=== PATIENT | female | born 1955 | race African-American/Black ===

== ENCOUNTER 2022-07-17 15:33 | Inpatient (IN) | payer MEDICARE, MEDICAID ==
[~2022-07-17] VITALS: Ht 167.6 cm; Wt 54.6 kg
[~2022-07-17 15:33] MED LIST: ALPR0.5T PO; AMIT25TA9 PO; ARAV10 PO; ATEN50TA PO; CELL5 PO; DULO30CA2; FOLI-43 PO; GABA-532; HYDR200T35 PO; HYDR25TA PO; LEVO50TA8 PO; MECL-159 PO; MELO15TA13 PO; METF-414; PRED10TA; QUET25TA PO; SIMV-341; SULF500T PO; TRAM50TA PO
[2022-07-17] MEDS ORDERED: SODIUM CHLORIDE 0.9% 1,000 ML IV ONE (16:45)
[2022-07-17] MEDS ORDERED: ASPIRIN 81MG TABLET PO ONE (16:45)
[2022-07-17 16:59] LABS: BASOPHILS % 0.9 % (0.0-2.0); EOSINOPHILS % 5.4 % (0.0-5.0); HEMATOCRIT. 32.6 % (36.0-48.0); HEMOGLOBIN. 10.7 g/dL (12.0-16.0); LYMPHOCYTES % 28.3 % (20.0-50.0); MEAN CORPUSCULAR HEMOGLOBIN 28.7 pg (28.0-32.0); MEAN CORPUSCULAR VOLUME 87.2 fL (81.0-99.0); MEAN PLATELET VOLUME 8.6 fl (7.4-10.4); MONOCYTES % 4.8 % (2.0-8.0); NEUTROPHILS % 60.6 % (40.0-76.0); PLATELET 190 x1000/uL (130-400); RED BLOOD CELL COUNT 3.73 mill/uL (4.2-5.4); RED CELL DISTRIBUTION WIDTH 14.5 % (11.6-14.6)
[2022-07-17 17:11] LABS: CHLORIDE 106 mEq/L (98-107)
[2022-07-17] MEDS ORDERED: NOREPINEPHRINE 8MG/250ML PMX 250 ML IV ONE (18:00)
[2022-07-17] MEDS ORDERED: IOHEXOL-350 100 ML BOTTLE ONE (18:09)
[2022-07-17] MEDS ORDERED: VANCOMYCIN 1G PREMIX 200 ML IV SCH (18:30)
[2022-07-17] MEDS ORDERED: CEFTRIAXONE 1 G PREMIX 50 ML IV ONE (18:30)
[2022-07-17 20:02] LABS: CLARITY URINE CLEAR (CLEAR); COLOR URINE YELLOW (YELLOW); KETONES URINE NEGATIVE (NEGATIVE); LEUKOCYTE ESTERASE URINE NEGATIVE (NEGATIVE); NITRITE URINE NEGATIVE (NEGATIVE); OCCULT BLOOD URINE NEGATIVE (NEGATIVE); PH URINE 6.5 (4.5-8.0); PROTEIN URINE NEGATIVE (NEGATIVE); UROBILINOGEN URINE 0.2 E.U./dL (0.2-1.0)
[2022-07-17] MEDS ORDERED: MORPHINE SULFATE 4 MG/ML CPJ (NOT FOR IM USE) IV ONE (21:15)
[2022-07-17] MEDS ORDERED: ONDANSETRON HCL 4MG/2ML INJ IV ONE (21:15)
[2022-07-17] MEDS ORDERED: PHENYLEPHRINE 100 MG in DEXT 5% WATER 240 ML IV PRN (21:45)
[2022-07-17] MEDS: PHENYLEPHRINE 100 MG in DEXT 5% WATER 240 ML IV PRN (22:31)
[2022-07-18] VITALS (17 sets, daily range): BP systolic 87–138; BP diastolic 46–73
[2022-07-18] MEDS ORDERED: IPRATROPIUM/ALBUTEROL 0.5-3(2.5)MG/3ML NEB HHN PRN (03:00)
[2022-07-18] MEDS ORDERED: NA PHOS,M-B/NA PHOS,DI-BA ENEMA 118ML PR PRN (03:00)
[2022-07-18] MEDS ORDERED: DIPHENHYDRAMINE 50MG/ML VIAL IV PRN (03:00)
[2022-07-18] MEDS ORDERED: ACETAMINOPHEN 325MG TABLET PO PRN ×2 (03:00)
[2022-07-18] MEDS ORDERED: CLONIDINE 0.1MG TABLET PO PRN (03:00)
[2022-07-18] MEDS ORDERED: MAGNESIUM/ALUMINUM HYDROXIDE/SIMETHICONE 30ML UDC PO PRN (03:00)
[2022-07-18] MEDS ORDERED: DOCUSATE SODIUM 100MG CAPSULE PO PRN (03:00)
[2022-07-18] MEDS ORDERED: GUAIFENESIN 200MG/10ML SUGAR FREE UDC PO PRN (03:00)
[2022-07-18] MEDS: QUETIAPINE FUMARATE 25MG TABLET PO SCH ×2 (03:15→11:24)
[2022-07-18] MEDS: ATORVASTATIN CALCIUM 20MG TABLET PO SCH ×2 (03:15→22:48)
[2022-07-18] MEDS ORDERED: DEXTROSE 50% WATER 50ML SYRINGE IV PRN (03:15)
[2022-07-18] MEDS: PREDNISONE 5MG TABLET PO SCH (03:15)
[2022-07-18] MEDS: SODIUM CHLORIDE 0.9% 1,000 ML IV SCH ×2 (03:15→17:09)
[2022-07-18 05:23] LABS: BASOPHILS % 2.7 % (0.0-2.0); HEMATOCRIT. 30.8 % (36.0-48.0); HEMOGLOBIN. 10.3 g/dL (12.0-16.0); LYMPHOCYTES % 25.5 % (20.0-50.0); MEAN CORPUSCULAR HEMOGLOBIN 28.8 pg (28.0-32.0); MEAN CORPUSCULAR VOLUME 86.5 fL (81.0-99.0); MEAN PLATELET VOLUME 8.1 fl (7.4-10.4); MONOCYTES % 6.4 % (2.0-8.0); NEUTROPHILS % 54.4 % (40.0-76.0); PLATELET 215 x1000/uL (130-400); RED BLOOD CELL COUNT 3.57 mill/uL (4.2-5.4); RED CELL DISTRIBUTION WIDTH 14.8 % (11.6-14.6)
[2022-07-18 05:52] LABS: PHOSPHORUS 3.9 mg/dL (2.5-4.9); T4 FREE 1.27 ng/dL (0.76-1.46)
[2022-07-18] MEDS ORDERED: VANCOMYCIN 1G PREMIX 200 ML IV SCH (06:00)
[2022-07-18] MEDS: INSULIN LISPRO 100 UNITS/ML SUBCUT SCH ×4 (06:28→21:00)
[2022-07-18] MEDS: BLOOD SUGAR DIAGNOSTIC STRIP TEST SCH ×4 (06:28→21:00)
[2022-07-18] MEDS: PANTOPRAZOLE 40MG DR TABLET PO SCH (06:49)
[2022-07-18] MEDS: LEVOTHYROXINE SODIUM 50MCG TABLET PO SCH (06:49)
[2022-07-18] MEDS: ENOXAPARIN 40MG/0.4ML SYR SUBCUT SCH (09:00)
[2022-07-18] MEDS: MIDODRINE HCL 5MG TABLET PO SCH ×3 (11:24→17:00)
[2022-07-18] MEDS: ASPIRIN 81MG TABLET PO SCH (11:24)
[2022-07-18] MEDS: DULOXETINE HCL 30MG DR CAPSULE PO SCH (11:24)
[2022-07-18] MEDS: VANCOMYCIN 750MG PREMIX 150 ML IV SCH (12:00)
[2022-07-18] MEDS: HYDROCODONE/ACETAMINOPHEN 10/325MG TABLET PO PRN (13:54)
[2022-07-18 14:04] LABS: FOLIC ACID (FOLATE) SERUM > 20.00 ng/mL (>5.38)
[2022-07-18] MEDS ORDERED: NALOXONE HCL 0.4MG/ML VIAL IV PRN (14:30)
[2022-07-18] MEDS ORDERED: AMIODARONE HCL 900 MG in DEXT 5% WATER 482 ML IV PRN (16:00)
[2022-07-18] MEDS ORDERED: AMIODARONE HCL 150 MG in DEXT 5% WATER 100 ML IV NR (17:00)
[2022-07-18] MEDS ORDERED: CEFTRIAXONE 1 G PREMIX 50 ML IV SCH (18:00)
[2022-07-18] MEDS: CEFTRIAXONE 1,000 MG in DEXTROSE 5% WATER 50 ML IV SCH (18:05)
[2022-07-18] MEDS: ONDANSETRON HCL 4MG/2ML INJ IV PRN (23:07)
[2022-07-19] VITALS (47 sets, daily range): BP systolic 83–158; BP diastolic 40–103
[2022-07-19] MEDS: PHENYLEPHRINE 100 MG in DEXT 5% WATER 240 ML IV PRN (00:39)
[2022-07-19] MEDS: VANCOMYCIN 750MG PREMIX 150 ML IV SCH ×2 (06:30→23:35)
[2022-07-19 07:08] LABS: HEMATOCRIT. 35.4 % (36.0-48.0); HEMOGLOBIN. 11.3 g/dL (12.0-16.0); MEAN CORPUSCULAR HEMOGLOBIN 28.6 pg (28.0-32.0); MEAN CORPUSCULAR VOLUME 89.8 fL (81.0-99.0); PLATELET 171 x1000/uL (130-400); RED BLOOD CELL COUNT 3.94 mill/uL (4.2-5.4); RED CELL DISTRIBUTION WIDTH 14.9 % (11.6-14.6)
[2022-07-19 07:24] LABS: CHLORIDE 104 mEq/L (98-107)
[2022-07-19 07:32] LABS: PHOSPHORUS 2.9 mg/dL (2.5-4.9)
[2022-07-19] MEDS: BLOOD SUGAR DIAGNOSTIC STRIP TEST SCH ×4 (07:50→21:28)
[2022-07-19] MEDS: INSULIN LISPRO 100 UNITS/ML SUBCUT SCH ×4 (08:20→21:00)
[2022-07-19] MEDS: AMIODARONE HCL 200 MG TABLET PO SCH ×2 (09:00→21:28)
[2022-07-19] MEDS ORDERED: MAGNESIUM 2 G PREMIX 50 ML IV NR (09:00)
[2022-07-19] MEDS: MAGNESIUM OXIDE 400MG TABLET PO SCH (09:00)
[2022-07-19] MEDS: QUETIAPINE FUMARATE 25MG TABLET PO SCH (09:30)
[2022-07-19] MEDS: PANTOPRAZOLE 40MG DR TABLET PO SCH (09:31)
[2022-07-19] MEDS: DULOXETINE HCL 30MG DR CAPSULE PO SCH (09:31)
[2022-07-19] MEDS: ASPIRIN 81MG TABLET PO SCH (09:31)
[2022-07-19] MEDS: ENOXAPARIN 40MG/0.4ML SYR SUBCUT SCH (09:31)
[2022-07-19] MEDS: PREDNISONE 5MG TABLET PO SCH (09:31)
[2022-07-19] MEDS: MIDODRINE HCL 5MG TABLET PO SCH ×3 (09:31→17:26)
[2022-07-19 10:02] LABS: PLATELET ESTIMATE NORMAL
[2022-07-19] MEDS ORDERED: DIPHENOXYLATE/ATROPINE 2.5/0.025MG TABLET PO PRN (13:15)
[2022-07-19] MEDS: ONDANSETRON HCL 4MG/2ML INJ IV PRN (13:27)
[2022-07-19] MEDS: HYDROCODONE/ACETAMINOPHEN 5/325MG TABLET PO PRN (13:28)
[2022-07-19] MEDS: METRONIDAZOLE 500 MG PREMIX 100 ML IV SCH ×2 (15:34→21:32)
[2022-07-19] MEDS: CEFTRIAXONE 1,000 MG in DEXTROSE 5% WATER 50 ML IV SCH (17:26)
[2022-07-19] MEDS: PANTOPRAZOLE SODIUM 40 MG/VIAL IV SCH (17:26)
[2022-07-19] MEDS: ATORVASTATIN CALCIUM 20MG TABLET PO SCH (21:28)
[2022-07-20] VITALS (39 sets, daily range): BP systolic 43–173; BP diastolic 18–113
[2022-07-20] MEDS: HYDROCODONE/ACETAMINOPHEN 5/325MG TABLET PO PRN ×2 (03:12→10:17)
[2022-07-20] MEDS: METRONIDAZOLE 500 MG PREMIX 100 ML IV SCH ×3 (05:50→21:22)
[2022-07-20 07:33] LABS: CHLORIDE 107 mEq/L (98-107)
[2022-07-20 07:44] LABS: BASOPHILS % 0.9 % (0.0-2.0); EOSINOPHILS % 8.5 % (0.0-5.0); HEMATOCRIT. 28.9 % (36.0-48.0); HEMOGLOBIN. 9.5 g/dL (12.0-16.0); MEAN CORPUSCULAR HEMOGLOBIN 28.7 pg (28.0-32.0); MEAN CORPUSCULAR VOLUME 87.5 fL (81.0-99.0); MEAN PLATELET VOLUME 8.7 fl (7.4-10.4); MONOCYTES % 7.7 % (2.0-8.0); NEUTROPHILS % 45.9 % (40.0-76.0); PLATELET 175 x1000/uL (130-400); RED BLOOD CELL COUNT 3.31 mill/uL (4.2-5.4); RED CELL DISTRIBUTION WIDTH 14.5 % (11.6-14.6)
[2022-07-20] MEDS: INSULIN LISPRO 100 UNITS/ML SUBCUT SCH ×4 (08:20→21:00)
[2022-07-20] MEDS: BLOOD SUGAR DIAGNOSTIC STRIP TEST SCH ×4 (08:39→21:23)
[2022-07-20] MEDS: MAGNESIUM OXIDE 400MG TABLET PO SCH (08:40)
[2022-07-20] MEDS: PANTOPRAZOLE SODIUM 40 MG/VIAL IV SCH ×2 (08:40→17:31)
[2022-07-20] MEDS: QUETIAPINE FUMARATE 25MG TABLET PO SCH (08:40)
[2022-07-20] MEDS: ASPIRIN 81MG TABLET PO SCH (08:40)
[2022-07-20] MEDS: AMIODARONE HCL 200 MG TABLET PO SCH (08:40)
[2022-07-20] MEDS: DULOXETINE HCL 30MG DR CAPSULE PO SCH (08:41)
[2022-07-20] MEDS: ENOXAPARIN 40MG/0.4ML SYR SUBCUT SCH (08:41)
[2022-07-20] MEDS: MIDODRINE HCL 5MG TABLET PO SCH ×3 (08:41→17:31)
[2022-07-20] MEDS: PREDNISONE 5MG TABLET PO SCH (08:41)
[2022-07-20] MEDS: LEVOTHYROXINE SODIUM 50MCG TABLET PO SCH (08:41)
[2022-07-20] MEDS: ONDANSETRON HCL 4MG/2ML INJ IV PRN (15:58)
[2022-07-20] MEDS ORDERED: METOCLOPRAMIDE HCL 10MG/2ML VIAL IV PRN (16:00)
[2022-07-20 16:43] LABS: FERRITIN 51 ng/mL (10-291)
[2022-07-20] MEDS: CEFTRIAXONE 1,000 MG in DEXTROSE 5% WATER 50 ML IV SCH (17:28)
[2022-07-20] MEDS: METOPROLOL TARTRATE 25MG TABLET PO SCH (21:22)
[2022-07-20] MEDS: ATORVASTATIN CALCIUM 20MG TABLET PO SCH (21:22)
[2022-07-20 21:44] LABS: VITAMIN B12 SERUM 1491 pg/mL (211-911)
[2022-07-20] MEDS ORDERED: VANCOMYCIN 750MG PREMIX 150 ML IV SCH (22:00)
[2022-07-21] VITALS (22 sets, daily range): BP systolic 107–165; BP diastolic 42–96
[2022-07-21] MEDS: METRONIDAZOLE 500 MG PREMIX 100 ML IV SCH ×2 (05:33→13:51)
[2022-07-21 05:56] LABS: BASOPHILS % 1.2 % (0.0-2.0); EOSINOPHILS % 4.4 % (0.0-5.0); HEMATOCRIT. 28.5 % (36.0-48.0); HEMOGLOBIN. 9.3 g/dL (12.0-16.0); LYMPHOCYTES % 42.8 % (20.0-50.0); MEAN CORPUSCULAR HEMOGLOBIN 28.7 pg (28.0-32.0); MEAN CORPUSCULAR VOLUME 88.2 fL (81.0-99.0); MEAN PLATELET VOLUME 8.2 fl (7.4-10.4); MONOCYTES % 10.4 % (2.0-8.0); NEUTROPHILS % 41.2 % (40.0-76.0); PLATELET 186 x1000/uL (130-400); RED BLOOD CELL COUNT 3.23 mill/uL (4.2-5.4); RED CELL DISTRIBUTION WIDTH 14.5 % (11.6-14.6)
[2022-07-21 05:59] LABS: CHLORIDE 102 mEq/L (98-107)
[2022-07-21] MEDS: INSULIN LISPRO 100 UNITS/ML SUBCUT SCH ×2 (08:20→13:10)
[2022-07-21] MEDS: ENOXAPARIN 40MG/0.4ML SYR SUBCUT SCH (08:24)
[2022-07-21] MEDS: QUETIAPINE FUMARATE 25MG TABLET PO SCH (08:24)
[2022-07-21] MEDS: ONDANSETRON HCL 4MG/2ML INJ IV PRN (08:25)
[2022-07-21] MEDS: MAGNESIUM OXIDE 400MG TABLET PO SCH (08:25)
[2022-07-21] MEDS: ASPIRIN 81MG TABLET PO SCH (08:25)
[2022-07-21] MEDS: LEVOTHYROXINE SODIUM 50MCG TABLET PO SCH (08:25)
[2022-07-21] MEDS: METOPROLOL TARTRATE 25MG TABLET PO SCH (08:25)
[2022-07-21] MEDS: PREDNISONE 5MG TABLET PO SCH (08:25)
[2022-07-21] MEDS: DULOXETINE HCL 30MG DR CAPSULE PO SCH (08:25)
[2022-07-21] MEDS: PANTOPRAZOLE SODIUM 40 MG/VIAL IV SCH (08:26)
[2022-07-21] MEDS: BLOOD SUGAR DIAGNOSTIC STRIP TEST SCH ×2 (08:29→13:30)
[2022-07-21] MEDS: MIDODRINE HCL 5MG TABLET PO SCH ×2 (08:29→13:51)
[2022-07-21] MEDS ORDERED: AMIODARONE HCL 200 MG TABLET PO SCH (09:00)
[2022-07-21] MEDS ORDERED: POTASSIUM CHLORIDE 20MEQ TABLET SR PO SCH (10:00)
[2022-07-21] MEDS: HYDROCODONE/ACETAMINOPHEN 10/325MG TABLET PO PRN (10:39)
== END 2022-07-21 17:45 | disposition left against medical advice (07) | DRG 871 ==
LOC: ER 15:33 → EDBEDREQ 21:40 → MICUSO 22:33 → EDBEDREQSVC 23:02 → EDBEDREQTM 23:02 → CVICU 07-18 09:25 → 7WST 07-21 13:05
PROVIDERS: ADMIT Internal Medicine Nephrology; ATTEND Internal Medicine Nephrology
DX: R57.1 Hypovolemic shock (principal); J96.01 Acute respiratory failure with hypoxia; N17.0 Acute kidney failure with tubular necrosis; I48.92 Unspecified atrial flutter; E87.1 Hypo-osmolality and hyponatremia; I13.0 Hypertensive heart and chronic kidney disease with heart failure and stage 1 through stage 4 chronic kidney disease, or unspecified chronic kidney disease; M48.54XA Collapsed vertebra, not elsewhere classified, thoracic region, initial encounter for fracture; Z68.1 Body mass index [BMI] 19.9 or less, adult; E44.0 Moderate protein-calorie malnutrition; I50.20 Unspecified systolic (congestive) heart failure; I42.8 Other cardiomyopathies; I47.1 Supraventricular tachycardia; I48.91 Unspecified atrial fibrillation; D50.9 Iron deficiency anemia, unspecified; D63.8 Anemia in other chronic diseases classified elsewhere; D72.10 Eosinophilia, unspecified; E03.9 Hypothyroidism, unspecified; E11.22 Type 2 diabetes mellitus with diabetic chronic kidney disease; E78.00 Pure hypercholesterolemia, unspecified; E83.42 Hypomagnesemia; G89.4 Chronic pain syndrome; I34.0 Nonrheumatic mitral (valve) insufficiency; I44.7 Left bundle-branch block, unspecified; K52.9 Noninfective gastroenteritis and colitis, unspecified; M17.0 Bilateral primary osteoarthritis of knee; K74.60 Unspecified cirrhosis of liver; M32.9 Systemic lupus erythematosus, unspecified; M54.16 Radiculopathy, lumbar region; N18.9 Chronic kidney disease, unspecified; E78.5 Hyperlipidemia, unspecified; M48.061 Spinal stenosis, lumbar region without neurogenic claudication; E87.6 Hypokalemia; Z53.29 Procedure and treatment not carried out because of patient's decision for other reasons; Z82.49 Family history of ischemic heart disease and other diseases of the circulatory system; Z79.82 Long term (current) use of aspirin; Z88.0 Allergy status to penicillin; Z79.899 Other long term (current) drug therapy; Z79.84 Long term (current) use of oral hypoglycemic drugs
CPT/HCPCS: 36415; 71045; 71275; 80048; 80053; 80061; 80202; 81003; 82607; 82728; 82746; 82962; 83036; 83540; 83550; 83605; 83735; 83880; 84100; 84145; 84439; 84443; 84484; 85025; 85379; 86850; 86900; 93005; 93306; 93970; 97162; 99291; C1893; C9113; J0282; J0696; J1650; J1815; J2270; J2370; J2405; J2765; J3370; J3475; J3490; J7030; J7060; J7512; Q9967